=== PATIENT | female | born 1990 | race Caucasian/White ===

== ENCOUNTER 2016-12-07 12:01 | Emergency (ER) | payer OTHER ==
[~2016-12-07 12:01] MED LIST: CLARITIN5 MG/5 ML GT; CLEOCIN T30 GM TP; DEBROX15 ML OT; DULCOLAX10 MG PR; ENSURE113 GM GT; KENALOG 0.5% CR15 GM EXT; KETOCONAZOLE120 ML TP; KLONOPIN0.5 MG GT; MIRALAX PACK 171 PKT GT; NEXIUM40 MG PO; RISPERDAL SOL1 MG/ML GT; SELENIUM SULFI180 ML TP; SWEEN CREAM340 GM TP; VALPROIC A250 MG/51 GT; VENTOLIN/PROVE0.5 ML INH
[2016-12-07 14:52] LABS: HEMOGLOBIN 13.4 gm/dl (12.3-15.3); WHITE BLOOD COUNT 5.9 K/UL (4.5-11.0)
[2016-12-07 15:18] LABS: BUN/CREATININE RATIO 20 (0-10)
[2017-05-03] MEDS ORDERED: PAXIL20 MG PO (09:24)
== END 2016-12-07 15:40 | disposition home or self-care (01) ==
LOC: ER1 12:01
PROVIDERS: Family Medicine
DX: K94.29 Other complications of gastrostomy (principal); R11.10 Vomiting, unspecified; F79 Unspecified intellectual disabilities; F91.9 Conduct disorder, unspecified
CPT/HCPCS: 36415; 51701; 71010; 74000; 80053; 81001; 83690; 85025; 87086; 99283

== ENCOUNTER → 2016-12-28 | Day surgery (SDC) | payer OTHER ==
[~2016-12-28] MED LIST changes: +PAXIL20 MG PO
== END | disposition home or self-care (01) ==
LOC: OR 08:28
PROC: 0D20XUZ Change Feeding Device in Upper Intestinal Tract, External Approach (ICD-10-PCS; principal; 2016-12-28)
DX: K94.23 Gastrostomy malfunction (principal); F73 Profound intellectual disabilities; F41.9 Anxiety disorder, unspecified; G40.909 Epilepsy, unspecified, not intractable, without status epilepticus; Z87.19 Personal history of other diseases of the digestive system; Z79.899 Other long term (current) drug therapy; Y83.3 Surgical operation with formation of external stoma as the cause of abnormal reaction of the patient, or of later complication, without mention of misadventure at the time of the procedure

== ENCOUNTER 2016-12-29 09:15 | Emergency (ER) | payer OTHER ==
[~2016-12-29 09:15] MED LIST changes: -PAXIL20 MG PO
[2017-05-03] MEDS ORDERED: PAXIL20 MG PO (09:24)
== END 2016-12-29 11:32 | disposition home or self-care (01) ==
LOC: ER1 09:15
DX: R56.9 Unspecified convulsions (principal); J40 Bronchitis, not specified as acute or chronic
CPT/HCPCS: 71010; 99284

== ENCOUNTER 2017-01-26 18:15 | Emergency (ER) | payer OTHER ==
[2017-01-26 20:05] LABS: HEMOGLOBIN 14.2 gm/dl (12.3-15.3); RED BLOOD COUNT 4.2 M/UL (4.00-5.10); WHITE BLOOD COUNT 8.4 K/UL (4.5-11.0)
[2017-01-26 20:19] LABS: BUN/CREATININE RATIO 23 (0-10)
[2017-05-03] MEDS ORDERED: PAXIL20 MG PO (09:24)
== END 2017-01-26 21:10 | disposition home or self-care (01) ==
LOC: ER1 18:15
PROVIDERS: Preventive Medicine Occupational Medicine
DX: R11.2 Nausea with vomiting, unspecified (principal); Z87.891 Personal history of nicotine dependence; Z88.6 Allergy status to analgesic agent; Z88.7 Allergy status to serum and vaccine
CPT/HCPCS: 36415; 80048; 85025; 99284

== ENCOUNTER → 2017-02-18 | Outpatient (CLI) | payer OTHER ==
[~2017-02-18] MED LIST changes: +PAXIL20 MG PO
[2017-02-18 11:36] LABS: HEMOGLOBIN 13.7 gm/dl (12.3-15.3); RED BLOOD COUNT 4.1 M/UL (4.00-5.10); WHITE BLOOD COUNT 3.8 K/UL (4.5-11.0)
[2017-02-18 11:59] LABS: BUN/CREATININE RATIO 18 (0-10)
== END ==
LOC: LAB 10:52
PROVIDERS: Nurse Practitioner Primary Care
DX: R13.10 Dysphagia, unspecified (principal); G40.909 Epilepsy, unspecified, not intractable, without status epilepticus
CPT/HCPCS: 36415; 80048; 85025

== ENCOUNTER → 2020-11-19 | Outpatient (CLI) | payer OTHER ==
[~2020-11-19] MED LIST changes: +ALBUTEROL1.25 MG/3 INH; +BACTROBAN CREAM15 GM EXT; +BACTROBAN OINT22 GM TD; +CETAPHIL CREAM454 GM TP; +CLEARLAX119 GM PO; +CLINDAMYCIN GEL TP; +COLACE SOL100 MG/10 PO; +CULTIVATE CREAM; +DEBROX15 ML AU; +DEPAKENE S250 MG/5 M GT; +DEPO-PROVE150 MG/1 M IM; +DEPO-PROVERA IM; +DOCU LIQUI50 MG/5 ML PO; +DULCOLAX STOOL100 MG GT; +EAR DROPS15 ML EARBOTH; +ENSURE ORIGINA237 ML GT; +JEVITY; +JEVITY 1 CAL1500 ML PO; +KEPPRA 100100 MG/1 M GT; +KETOCONAZOLE15 GM TP; +KLONOPIN TAB 00.5 MG GT; +KLONOPIN TAB 00.5 MG PO; +LEVETIRACE500 MG/51 PO; +LEVOTHYROXINE25 MCG PO; +LIDEX CREAM 0.030 GM EXT; +LORATADINE5 MG/5 M1 PO; +MIRALAX17 GM GT; +MONTELUKAST SOD10 MG PO; +NEXIUM40 M1 GT; +NEXIUM40 M1 PO; +NIZORAL 2% CREA15 GM TOP; +OMNICEF 300 MG300 MG PO; +PAXIL 20 MG TAB20 MG GT; +PAXIL20 MG GT; +PROVENTIL HFA6.7 GM PO; +RISPERDAL SOL1 MG/ML PO; +SELENIUM SULFI118 ML TP; +SELSUN BLUE NA325 ML TP; +SINGULAIR10 MG PO; +SWEEN 2457 GM TP; +SYNTHROID25 MCG PO; +TRIAMCINOLON; +TYLENOL325 MG GT; +VALPROIC A250 MG/5 M GT; +VALPROIC A500 MG/10 PO; +[UNRECOGNIZED DRUG - OTHER] TD
[2020-11-19 09:19] LABS: HEMOGLOBIN 16.3 gm/dl (12.3-15.3); RED BLOOD COUNT 4.56 M/UL (4.00-5.10); WHITE BLOOD COUNT 4.4 K/UL (4.5-11.0)
[2020-11-19 09:48] LABS: BUN/CREATININE RATIO 23 (0-10)
== END ==
LOC: LAB 08:39
PROVIDERS: Nurse Practitioner Primary Care
DX: K59.00 Constipation, unspecified (principal); D64.9 Anemia, unspecified; R79.89 Other specified abnormal findings of blood chemistry; F41.9 Anxiety disorder, unspecified; E61.1 Iron deficiency; E03.9 Hypothyroidism, unspecified
CPT/HCPCS: 36415; 80053; 82607; 82728; 82746; 83735; 84443; 85025

== ENCOUNTER → 2021-01-01 | Day surgery (SDC) | payer OTHER | END | disposition home or self-care (01) | LOC: OR 09:18 | DX: K94.23 Gastrostomy malfunction (principal); K59.09 Other constipation; F73 Profound intellectual disabilities; Z88.6 Allergy status to analgesic agent; Z88.7 Allergy status to serum and vaccine ==

== ENCOUNTER → 2021-03-24 | Outpatient (CLI) | payer OTHER ==
[2021-03-24 09:53] LABS: HEMOGLOBIN 15.6 gm/dl (12.3-15.3); RED BLOOD COUNT 4.36 M/UL (4.00-5.10); WHITE BLOOD COUNT 3.4 K/UL (4.5-11.0)
[2021-03-24 10:22] LABS: BUN/CREATININE RATIO 33 (0-10)
== END ==
LOC: LAB 08:27
PROVIDERS: Nurse Practitioner Primary Care
DX: K59.00 Constipation, unspecified (principal); D64.9 Anemia, unspecified; R79.89 Other specified abnormal findings of blood chemistry; F41.9 Anxiety disorder, unspecified; R63.6 Underweight; E61.1 Iron deficiency; E03.9 Hypothyroidism, unspecified
CPT/HCPCS: 36415; 80053; 82607; 82728; 82746; 83735; 84443; 85025

== ENCOUNTER → 2021-04-08 | Day surgery (SDC) | payer OTHER | END | disposition home or self-care (01) | LOC: OR 07:00 | DX: K94.23 Gastrostomy malfunction (principal); K59.09 Other constipation; Z79.82 Long term (current) use of aspirin; F41.9 Anxiety disorder, unspecified; G40.909 Epilepsy, unspecified, not intractable, without status epilepticus; Z20.822 Contact with and (suspected) exposure to COVID-19 ==

== ENCOUNTER → 2021-06-18 | Outpatient (CLI) | payer OTHER ==
[2021-06-18 10:11] LABS: HEMOGLOBIN 16.6 gm/dl (12.3-15.3); RED BLOOD COUNT 4.65 M/UL (4.00-5.10); WHITE BLOOD COUNT 4.3 K/UL (4.5-11.0)
[2021-06-19 12:14] LABS: RHEUMATOID ARTHRITIS FACTOR <10.0 IU/mL (0.0-13.9)
== END ==
LOC: LAB 09:10
PROVIDERS: Internal Medicine
DX: M25.50 Pain in unspecified joint (principal); D75.89 Other specified diseases of blood and blood-forming organs
CPT/HCPCS: 36415; 85025; 86038; 86431

== ENCOUNTER 2021-06-22 18:03 | Emergency (ER) | payer OTHER | END 2021-06-22 20:11 | disposition home or self-care (01) | LOC: ER1 18:03 | DX: K94.23 Gastrostomy malfunction (principal); K21.9 Gastro-esophageal reflux disease without esophagitis; G40.909 Epilepsy, unspecified, not intractable, without status epilepticus | CPT/HCPCS: 43762; 74018; 99283; Q9963 ==

== ENCOUNTER 2021-06-24 20:32 | Emergency (ER) | payer OTHER | END 2021-06-24 22:35 | disposition home or self-care (01) | LOC: ER1 20:32 | DX: Z43.1 Encounter for attention to gastrostomy (principal); Z88.1 Allergy status to other antibiotic agents; Z88.6 Allergy status to analgesic agent | CPT/HCPCS: 43762; 74018; 99283; Q9963 ==

== ENCOUNTER 2021-06-28 14:30 | Emergency (ER) | payer OTHER ==
[2021-06-28 16:11] LABS: BUN/CREATININE RATIO 22 (0-10)
[2021-06-28 16:28] LABS: HEMOGLOBIN 12.7 gm/dl (12.3-15.3); RED BLOOD COUNT 3.7 M/UL (4.00-5.10); WHITE BLOOD COUNT 3.6 K/UL (4.5-11.0)
== END 2021-06-29 00:30 | disposition home or self-care (01) ==
LOC: ER1 14:30
PROVIDERS: Family Medicine
DX: K94.23 Gastrostomy malfunction (principal); E86.0 Dehydration; G80.9 Cerebral palsy, unspecified; Z20.822 Contact with and (suspected) exposure to COVID-19
CPT/HCPCS: 71045; 71260; 80053; 81001; 82550; 82553; 83605; 83690; 83735; 84100; 84484; 85025; 86140; 87040; 87086; 93005; 96374; 99285; J0696; J7030; Q9963; Q9967; U0002

== ENCOUNTER 2021-06-30 11:14 | Emergency (ER) | payer OTHER | END 2021-06-30 15:07 | disposition home or self-care (01) | LOC: ER1 11:14 | DX: K94.23 Gastrostomy malfunction (principal); Z88.6 Allergy status to analgesic agent; Z88.7 Allergy status to serum and vaccine | CPT/HCPCS: 43762; 74018; 99283 ==

== ENCOUNTER → 2021-10-09 | Outpatient (CLI) | payer OTHER ==
[~2021-10-09] MED LIST changes: +DEBROX15 ML AS; +JEVITY 1 CAL1500 ML GT; +MIRALAX17 GM PO
[2021-10-09 09:26] LABS: HEMOGLOBIN 15.8 gm/dl (12.3-15.3); RED BLOOD COUNT 4.64 M/UL (4.00-5.10); WHITE BLOOD COUNT 5.1 K/UL (4.5-11.0)
== END ==
LOC: LAB 09:01
PROVIDERS: Internal Medicine
DX: R71.8 Other abnormality of red blood cells (principal); D75.89 Other specified diseases of blood and blood-forming organs
CPT/HCPCS: 36415; 85025

== ENCOUNTER → 2021-11-03 | Day surgery (SDC) | payer OTHER | END | disposition home or self-care (01) | LOC: OR 06:49 | DX: K94.23 Gastrostomy malfunction (principal); F73 Profound intellectual disabilities; K59.09 Other constipation; Z88.6 Allergy status to analgesic agent; Z88.7 Allergy status to serum and vaccine; Z79.899 Other long term (current) drug therapy; Z20.822 Contact with and (suspected) exposure to COVID-19 | CPT/HCPCS: 36415; 84703 ==

== ENCOUNTER → 2021-12-11 | Outpatient (CLI) | payer OTHER ==
[2021-12-11 10:34] LABS: HEMOGLOBIN 15.5 gm/dl (12.3-15.3); RED BLOOD COUNT 4.37 M/UL (4.00-5.10); WHITE BLOOD COUNT 4.5 K/UL (4.5-11.0)
[2021-12-11 10:57] LABS: BUN/CREATININE RATIO 27 (0-10)
== END ==
LOC: LAB 09:45
PROVIDERS: Internal Medicine
DX: R71.8 Other abnormality of red blood cells (principal); D75.89 Other specified diseases of blood and blood-forming organs; G40.909 Epilepsy, unspecified, not intractable, without status epilepticus
CPT/HCPCS: 36415; 80053; 82140; 85025; G0480

== ENCOUNTER → 2022-01-20 | Outpatient (CLI) | payer OTHER ==
[2022-01-22 12:11] LABS: ANTIHISTONE ANTIBODIES 3.1 Units (0.0-0.9)
== END ==
LOC: LAB 08:25
PROVIDERS: Internal Medicine Sports Medicine
DX: R76.0 Raised antibody titer (principal)
CPT/HCPCS: 36415; 83516; 85652; 86038; 86140

== ENCOUNTER → 2022-02-11 | Day surgery (SDC) | payer OTHER ==
[2022-02-11 09:11] LABS: RED BLOOD COUNT 4.16 M/UL (4.00-5.10); WHITE BLOOD COUNT 5.1 K/UL (4.5-11.0)
== END | disposition home or self-care (01) ==
LOC: OR 08:13
PROVIDERS: Internal Medicine Gastroenterology
DX: K94.23 Gastrostomy malfunction (principal); F73 Profound intellectual disabilities; Z88.6 Allergy status to analgesic agent; Z79.899 Other long term (current) drug therapy
CPT/HCPCS: 36415; 84703; 85025

== ENCOUNTER → 2022-05-13 | Outpatient (CLI) | payer OTHER ==
[2022-05-13 10:19] LABS: HEMOGLOBIN 16.1 gm/dl (12.3-15.3); RED BLOOD COUNT 4.48 M/UL (4.00-5.10); WHITE BLOOD COUNT 4.8 K/UL (4.5-11.0)
== END ==
LOC: LAB 09:09
PROVIDERS: Internal Medicine
DX: D75.89 Other specified diseases of blood and blood-forming organs (principal); R71.8 Other abnormality of red blood cells
CPT/HCPCS: 36415; 85027

== ENCOUNTER → 2022-06-10 | Day surgery (SDC) | payer OTHER | END | disposition home or self-care (01) | LOC: OR 09:43 | DX: K94.23 Gastrostomy malfunction (principal); G40.909 Epilepsy, unspecified, not intractable, without status epilepticus; F73 Profound intellectual disabilities; Z88.7 Allergy status to serum and vaccine; Z88.8 Allergy status to other drugs, medicaments and biological substances | CPT/HCPCS: 84703 ==

== ENCOUNTER → 2022-06-25 | Outpatient (CLI) | payer OTHER ==
[2022-06-25 10:14] LABS: HEMOGLOBIN 16.2 gm/dl (12.3-15.3); RED BLOOD COUNT 4.46 M/UL (4.00-5.10)
[2022-06-25 10:37] LABS: BUN/CREATININE RATIO 23 (0-10)
== END ==
LOC: LAB 09:44
PROVIDERS: Nurse Practitioner Primary Care
DX: K21.9 Gastro-esophageal reflux disease without esophagitis (principal); D64.9 Anemia, unspecified; R63.6 Underweight; E61.1 Iron deficiency; L68.0 Hirsutism; E03.9 Hypothyroidism, unspecified
CPT/HCPCS: 36415; 80053; 83735; 84443; 85025; G0480